=== PATIENT | male | born 1960 | race Caucasian/White ===

== ENCOUNTER 2023-06-20 11:00 | Inpatient (IN) | payer BC ==
[2023-06-20] VITALS (7 sets, daily range): BP systolic 117–143; BP diastolic 67–85; TEMP 97–99; O2SAT 68–94
[~2023-06-20] VITALS: Ht 172.7 cm; Wt 109.8 kg
[~2023-06-20 11:00] MED LIST: ACET-897 PO; ALTA1CAP3 PO; ATIV1TAB7 PO; BUPR-71 PO; LIDOCAINE 1% SDV 5ML VIAL SC PRN; LR 1,000 ML IV SCH; OMEG10002 PO; PARO20TA4 PO; VITA100093 PO; VITA500C24 PO
[2023-06-20] MEDS ORDERED: ONDANSETRON 4MG 2ML VIAL IV PRN ×2 (12:45→16:30)
[2023-06-20] MEDS ORDERED: ROCURONIUM BROMIDE 50MG/5ML VIAL As Ordered ONE (12:45)
[2023-06-20] MEDS ORDERED: propofoL 200 MG/20 ML VIAL As Ordered ONE (12:45)
[2023-06-20] MEDS ORDERED: MIDAZOLAM INJ 2MG/2ML VIAL As Ordered ONE (12:45)
[2023-06-20] MEDS ORDERED: LIDOCAINE 2% 100MG/5ML SDV (FOR ANES.) As Ordered ONE (12:45)
[2023-06-20] MEDS ORDERED: fentaNYL 100 MCG/2 ML INJECTION As Ordered ONE (12:46)
[2023-06-20] MEDS: ceFAZolin SOD 2 GM in IV 1 EA IV ONE (13:19)
[2023-06-20] MEDS ORDERED: HYDROmorphone HCL 2MG/ML 1ML VIAL As Ordered ONE (13:29)
[2023-06-20] MEDS ORDERED: ONDANSETRON 4MG 2ML VIAL As Ordered ONE (13:29)
[2023-06-20] MEDS: HEPARIN SOD (PORCINE) 5000UNITS/ML 1ML VIAL/SYRINGE SQ ONE (13:36)
[2023-06-20] MEDS ORDERED: VECURONIUM BROMIDE 10MG VIAL As Ordered ONE (13:57)
[2023-06-20] MEDS ORDERED: ACETAMINOPHEN 1000MG 100ML IV BAG As Ordered ONE (13:58)
[2023-06-20] MEDS ORDERED: SUGAMMADEX SODIUM 500 MG/5 ML VIAL (BRIDION) As Ordered ONE (13:59)
[2023-06-20] MEDS ORDERED: ePHEDrine SULFATE 25 MG/5 ML(5MG/ML) SYRINGE As Ordered ONE (15:08)
[2023-06-20] MEDS: LIDOCAINE 1% SDV 30ML VIAL As Ordered ONE (16:23)
[2023-06-20] MEDS ORDERED: HYDROMORPHONE HCL 0.5 MG/ 0.5 ML SYRINGE IV PRN (16:30)
[2023-06-20] MEDS ORDERED: fentaNYL 100 MCG/2 ML INJECTION IV PRN (16:30)
[2023-06-20] MEDS ORDERED: LR 1,000 ML IV SCH (16:30)
[2023-06-20 17:18] LABS: HEMATOCRIT 41.9 % (42.0-52.0); HEMOGLOBIN 14.1 g/dl (13.5-17.5); MEAN CORPUSCULAR HEMOGLOBIN 32.6 pg (27.0-33.0); MEAN CORPUSCULAR HGB CONC 33.7 g/dl (32.0-36.5); PLATELET COUNT, AUTOMATED 211 10^3/uL (150-450); RED BLOOD COUNT 4.32 10^6/uL (4.30-6.10); WHITE BLOOD COUNT 9.9 10^3/uL (4.0-10.0)
[2023-06-20] MEDS: PERCOCET 5MG/325MG TAB PO PRN ×2 (17:32→22:04)
[2023-06-20 17:48] LABS: BLOOD UREA NITROGEN 11 MG/DL (9-23); CALCIUM LEVEL 8.6 MG/DL (8.3-10.6); CARBON DIOXIDE LEVEL 25 MMOL/L (20-31); CHLORIDE LEVEL 108 MMOL/L (98-107); CREATININE FOR GFR 0.92 MG/DL (0.70-1.30); GLOMERULAR FILTRATION RATE > 60.0 (>49); GLUCOSE, FASTING 136 MG/DL (74-106); POTASSIUM SERUM 4.6 MMOL/L (3.5-5.1); SODIUM LEVEL 138 MMOL/L (136-145)
[2023-06-20] MEDS ORDERED: ACET25TA12 PO (18:35)
[2023-06-20] MEDS ORDERED: HOME MED LIST COMPLETE! XX SCH (18:40)
[2023-06-20] MEDS: NS 1,000 ML IV SCH (18:41)
[2023-06-20] MEDS: DOCUSATE SODIUM 100MG CAPSULE PO SCH (21:00)
[2023-06-20] MEDS: ceFAZolin SOD 1 GM in D5W MINI-BAG PLUS 50 ML IV SCH (22:02)
[2023-06-20] MEDS: LORazepam 1 MG TAB PO PRN (22:03)
[2023-06-20] MEDS: HEPARIN SOD (PORCINE) 5000UNITS/ML 1ML VIAL/SYRINGE SC SCH (22:03)
[2023-06-21] MEDS: ACETAMINOPHEN TAB 650MG DOSE (2X325MG) PO PRN (00:14)
[2023-06-21 03:15] VITALS: BP 111/71; TEMP 97.6; O2SAT 94
[2023-06-21 06:00] VITALS: BP 110/71; TEMP 98.1; O2SAT 94
[2023-06-21 06:38] LABS: HEMATOCRIT 39.8 % (42.0-52.0); HEMOGLOBIN 13.2 g/dl (13.5-17.5); MEAN CORPUSCULAR HEMOGLOBIN 32.7 pg (27.0-33.0); MEAN CORPUSCULAR HGB CONC 33.2 g/dl (32.0-36.5); MEAN CORPUSCULAR VOLUME 98.5 fl (80.0-96.0); PLATELET COUNT, AUTOMATED 182 10^3/uL (150-450); RED BLOOD COUNT 4.04 10^6/uL (4.30-6.10); WHITE BLOOD COUNT 7.8 10^3/uL (4.0-10.0)
[2023-06-21 06:54] LABS: BLOOD UREA NITROGEN 10 MG/DL (9-23); CALCIUM LEVEL 8.6 MG/DL (8.3-10.6); CARBON DIOXIDE LEVEL 30 MMOL/L (20-31); CHLORIDE LEVEL 109 MMOL/L (98-107); CREATININE FOR GFR 0.94 MG/DL (0.70-1.30); GLOMERULAR FILTRATION RATE > 60.0 (>49); GLUCOSE, FASTING 100 MG/DL (74-106); POTASSIUM SERUM 4.9 MMOL/L (3.5-5.1); SODIUM LEVEL 144 MMOL/L (136-145)
[2023-06-21 08:11] VITALS: BP 126/81
[2023-06-21] MEDS: PARoxetine 20MG TABLET PO SCH (08:11)
[2023-06-21] MEDS: ramipriL 5 MG CAP PO SCH (08:11)
[2023-06-21] MEDS: buPROPion **XL** TABLET 150MG (WELLBUTRIN XL) PO SCH (08:12)
[2023-06-21 10:00] VITALS: BP 120/78; TEMP 97.9; O2SAT 94
[2023-06-21 11:14] LABS: BASO % 0.5 % (0.0-1.0); EOS % 0.4 % (0.0-3.0); HEMATOCRIT 39.3 % (42.0-52.0); LYMPH # 1.4 10^3/uL (1.5-5.0); MEAN CORPUSCULAR HEMOGLOBIN 32.7 pg (27.0-33.0); MEAN CORPUSCULAR HGB CONC 33.1 g/dl (32.0-36.5); MEAN CORPUSCULAR VOLUME 98.7 fl (80.0-96.0); MONO # 1.2 10^3/uL (0.0-0.8); MONO % 15.1 % (2.0-8.0); NEUTROPHILS # 5.2 10^3/uL (1.5-8.5); NEUTROPHILS % 65.7 % (36.0-66.0); PLATELET COUNT, AUTOMATED 184 10^3/uL (150-450); RED BLOOD COUNT 3.98 10^6/uL (4.30-6.10); WHITE BLOOD COUNT 7.9 10^3/uL (4.0-10.0)
[2023-06-21] MEDS ORDERED: PERCOCET PO (12:40)
[2023-06-21] MEDS ORDERED: CIPR-249 PO (12:40)
[2023-06-21] MEDS ORDERED: COLA100C5 PO (12:40)
[2023-06-21] MEDS: oxyBUTYnin 5 MG TAB PO PRN (13:35)
[2023-06-21 14:00] VITALS: BP 141/85; TEMP 97.2; O2SAT 93
[2023-06-22] MEDS ORDERED: FUROSEMIDE 200 MG/20 ML ORAL SOL 60ML BTL PO SCH (09:00)
== END 2023-06-21 14:57 | disposition home or self-care (01) | DRG 484 ==
LOC: M OR 11:17 → M MSPAV 17:41
PROVIDERS: ADMIT Urology; ATTEND Urology
PROC: 8E0W4CZ Robotic Assisted Procedure of Trunk Region, Percutaneous Endoscopic Approach (ICD-10-PCS; 2023-06-20)
PROC: 0VT04ZZ Resection of Prostate, Percutaneous Endoscopic Approach (ICD-10-PCS; principal; 2023-06-20 15:00)
DX: C61 Malignant neoplasm of prostate (principal); Z88.5 Allergy status to narcotic agent; Z79.899 Other long term (current) drug therapy; Z88.8 Allergy status to other drugs, medicaments and biological substances